=== PATIENT | male | born 1995 | race Caucasian/White ===

== ENCOUNTER → 2016-12-28 | Outpatient (CLI) | payer OTHER ==
--- NOTE | ~2016-12-28 | US6 ---
[facility] A Service of [facility] & [facility] / [facility] RADIOLOGY TEXT RESULTS PATIENT: HOWARD CLIFTON LOCATION: [facility] : [birth year] UNIT #: [id number] AGE: [address]: Eloy Rey MD SEX: M ORDER DR: [id number] [facility] [address] [place], [place] [address] [id number] O MR#: [id number] Acc #: [id number] NAME: HOWARD CLIFTON : 1995 SEX: M STUDY DATE/TIME: 12/28/2016 10:15 UNIT: [facility] ROOM: STUDY DESCRIPTION: US Abdominal Limited Attending Physician: Eloy Rey M.D. Referring Physician: Eloy Rey M.D. Ordering Physician: Eloy Rey M.D. Primary Care Physician: Eloy Rey M.D. MEDICAL IMAGING REPORT This report is preliminary unless electronic signature is present EXAM Right upper quadrant ultrasound 12/28/2016 HISTORY Right upper quadrant abdominal pain for 6 months and gastroesophageal reflux disease. FINDINGS Ultrasound examination of the gallbladder is negative. There is no cholelithiasis, gallbladder wall thickening, or bile duct dilatation. The visualized liver is negative. IMPRESSION Negative gallbladder ultrasound examination. Dictated by... Marcin Javier M.D. THIS IS AN ELECTRONICALLY VERIFIED REPORT Marcin Javier M.D. at 12/29/2016 8:27 AM KRT/to TD: 12/28/2016 14:23 JOB #: [id number] MEDICAL IMAGING REPORT Page 1 of 1 COPY
--- NOTE | ~2016-12-28 | NM22 ---
[facility] A Service of [facility] & [facility] RADIOLOGY TEXT RESULTS PATIENT: HOWARD CLIFTON LOCATION: [facility] : [birth year] UNIT #: [id number] AGE: [address]: Eloy Rey MD SEX: M ORDER DR: [id number] [facility] [address] [place], [place] [address] [id number] O MR#: [id number] Acc #: [id number] NAME: HOWARD CLIFTON : 1995 SEX: M STUDY DATE/TIME: 12/28/2016 10:52 UNIT: US ROOM: STUDY DESCRIPTION: NM Hepatobiliary W GB Pharm Attending Physician: Eloy Rey M.D. Referring Physician: Eloy Rey M.D. Ordering Physician: Eloy Rey M.D. Primary Care Physician: Eloy Rey M.D. MEDICAL IMAGING REPORT This report is preliminary unless electronic signature is present EXAM HIDA scan with Kinevac CCK, 12/28/16. HISTORY Right side abdominal pain and gastroesophageal reflux disease for 6 months. FINDINGS The patient received an intravenous injection of 5.7 mCi of technetium 99m tagged Choletec for hepatobiliary imaging. One hour following the injection of the radiopharmaceutical, the patient received an intravenous injection of 1.2 mcg of Kinevac. There is homogeneous distribution of the radiotracer throughout the liver. Gallbladder activity was seen by 15 minutes postinjection of the radiopharmaceutical. Following Kinevac injection, the gallbladder ejection fraction was 84.9% (normal is greater than 30%). IMPRESSION Normal HIDA scan with gallbladder ejection fraction of 84.9%. Dictated by... Marcin Javier M.D. THIS IS AN ELECTRONICALLY VERIFIED REPORT Marcin Javier M.D. at 12/29/2016 8:27 AM KATERINA/jaycee TD: 12/28/2016 18:17 JOB #: [id number] MEDICAL IMAGING REPORT Page 1 of 1 COPY
== END | disposition home or self-care (01) ==
LOC: CGUS 09:47 → CNUC 12:00
DX: K21.9 Gastro-esophageal reflux disease without esophagitis (principal); R10.31 Right lower quadrant pain
CPT/HCPCS: 76705; 78227; A9537; J2805